=== PATIENT | male | born 1990 | race African-American/Black ===

== ENCOUNTER 2016-06-10 18:05 | Emergency (ER) | payer SELFPAY ==
[~2016-06-10] VITALS: Ht 182.9 cm; Wt 100.0 kg
[~2016-06-10 18:05] MED LIST: CYCL-36 PO; CYCL1PAK PO; IBUP800T23 PO; NORC10TA2 PO; PERC5TAB12 PO; WALKER STANDARD; Z.0.WALKERPLAT
[2016-06-10 18:27] VITALS: BP 145/81; PULSE 78; RESP 15; TEMP 97.9; O2SAT 98
--- NOTE | 2016-06-10 18:45 | PD ---
HPI . right hand pain and swelling Chief Complaint: Injury Time Seen by Provider: 18:43 Travel History International Travel<30 days: No Contact w/Intl Traveler<30days: No Traveled to known affect area: No History of Present Illness HPI 25-year-old male with a past medical history here with complaints of right hand pain and swelling. Patient slammed his hand in his car door by accident. He had an intense liang of pain and drove straight to the emergency department. Accident was only a few minutes ago) to arrival. He is complaining of right hand pain and swelling. He has difficulty moving the hand. He tells me that the extremity is somewhat numb. Examination he does have a significantly swollen right hand. There are swelling mainly over the third, fourth and fifth metacarpals. He has diminished package center supervisor strength. He has no other complaints. Pain is rated as 3/10 without and tingles into the forearm. PFSH Past Medical History Cancer: No Cardiovascular Problems: No Diminished Hearing: No Endocrine: No Genitourinary: No Immune Disorder: No Musculoskeletal: No Neurologic: No Psychiatric: No Reproductive: No Respiratory: No Immunizations Current: Yes Social History Alcohol Use: Yes Tobacco Use: Yes Substance Use: Yes (MARIJUANA) Allergies-Medications (Allergen,Severity, Reaction): Coded Allergies: No Known Allergies (Unverified , 09/10/15) Reported Meds & Prescriptions Reported Meds & Active Scripts Active Cyclobenzaprine HCl 10 Mg Tab 10 Mg PO Q8HR Walker Platform (Walkerplat) Device 1 Unit Walker Standard (Device) Device 1 Ea Percocet 5-325 mg (Oxycodone/Acetaminophen) 1 Tab 1 Tab PO Q6H PRN Ibuprofen 800 Mg Tab 800 Mg PO Q6 PRN Flexeril (Cyclobenzaprine HCl) 10 Mg Tab 10 Mg PO Q8 PRN Reported [place] 10-325 mg (Hydrocodone-Acetaminophen 10-325 mg) 1 Tab 1 Tab PO Q4H PRN Review of Systems General / Constitutional: No: Fever Eyes: No: Visual changes HENT: No: Headaches Cardiovascular: No: Chest Pain or Discomfort Respiratory: No: Shortness of Breath Gastrointestinal: No: Abdominal Pain Genitourinary: No: Dysuria Musculoskeletal: Positive: Pain (right hand pain) Skin: No Rash Neurologic: No: Weakness Psychiatric: No: Depression Endocrine: No: Polydipsia Hematologic/Lymphatic: No: Easy Bruising Physical Exam Narrative GENERAL: AAO x 3, no acute distress, Well-nourished, well-developed patient. SKIN: Warm and dry. No visible rashes or bruising. HEAD: Normocephalic and atraumatic. EYES: No scleral icterus. No injection or drainage. ENT: No nasal drainage noted. Mucous membranes pink. Airway patent. NECK: Supple, trachea midline. No JVD. CARDIOVASCULAR: Regular rate and rhythm without murmurs, gallops, or rubs. RESPIRATORY: Breath sounds equal bilaterally. No accessory muscle use. No rhonchi or rales. GASTROINTESTINAL: Abdomen soft, non-tender, nondistended. EXTREMITIES: No cyanosis. Right hand edema, tenderness, decreased package center supervisor strength. movement is decreased. BACK: Nontender without obvious deformity. No CVA tenderness. PSYCH: AAO x 3, normal affect. Data Data Last Documented VS Vital Signs Date Time Temp Pulse Resp B/P Pulse Ox O2 Delivery O2 Flow Rate FiO2 06/10/16 18:27 97.9 78 15 145/81 98 MDM Medical Decision Making Medical Screen Exam Complete: Yes Emergency Medical Condition: Yes Medical Record Reviewed: Yes Differential Diagnosis metacarpal fractures, metacarpal contusion, Narrative Course 25-year-old male with a past medical history here with complaints of right hand pain and swelling. Patient slammed his hand in his car door by accident. He had an intense liang of pain and drove straight to the emergency department. Accident was only a few minutes ago) to arrival. He is complaining of right hand pain and swelling. He has difficulty moving the hand. He tells me that the extremity is somewhat numb. Examination he does have a significantly swollen right hand. There are swelling mainly over the third, fourth and fifth metacarpals. He has diminished package center supervisor strength. He has no other complaints. Pain is rated as 3/10 without and tingles into the forearm. Patient seen and examined. He does have some significant swelling to the right hand. I believe this may be fractured. X-ray ordered. Patient will be transitioned over to the next provider. Disposition will be determined by that provider. Patient is currently comfortable and does not want any pain control meds. We have provided him with an ice pack to help reduce the swelling. Condition: Stable Karly Benedict Jun 10, 2016 18:45
--- NOTE | 2016-06-10 19:44 | PD ---
Physical Exam Date Seen by Provider: Jun 10, 2016 Time Seen by Provider: 19:43 Data Data Last Documented VS Vital Signs Date Time Temp Pulse Resp B/P Pulse Ox O2 Delivery O2 Flow Rate FiO2 06/10/16 18:27 97.9 78 15 145/81 98 Orders Hand, Complete ([id number]) (06/10/16 18:45) MDM Medical Record Reviewed: Yes Supervised Visit with TASNEEM: No Interpretation(s) Angulated displaced fifth metacarpal fracture Differential Diagnosis MDM: High Differential diagnoses: Fracture, sprain, strain, dislocation, contusion, neurovascular injury Narrative Course X-rays confirm a fracture of the fifth metacarpal. He is placed in a ulnar gutter splint. Lortab 5 a grams by mouth for pain ice pack applied. Mandatory follow-up ordered Diagnosis Primary Impression: Displaced fracture of neck of right fifth metacarpal bone Qualified Code: S62.336A - Closed displaced fracture of neck of fifth metacarpal bone of right hand, initial encounter Departure Forms: Tests/Procedures, Work Release Special Instructions: No work 2 days. Additional Instruction: Rest. Elevation. Keep clean and dry. Ice pack. 3 Advil every 6 hours. Lortab for severe pain. Follow-up with patient assistance. Med/Other Pt SpecificInfo: Prescription(s) given Scripts No Active Prescriptions or Reported Meds Disposition: 01 DISCHARGE HOME Condition: Stable Gaudencio Ann Jun 10, 2016 19:44
[2016-06-10] MEDS ORDERED: ACETAMINOPHEN/HYDROcodone 325 MG/5 MG TAB PO ONE (19:45)
[2016-06-10] MEDS ORDERED: HYDR-3533 PO (19:45)
--- NOTE | 2016-06-10 20:04 | RADRPT ---
EXAM DATE/TIME: 06/10/2016 19:33 [facility] COMPARISON: No previous studies available for comparison. INDICATIONS : Right hand pain. Patient got hand caught in a car door. Pain near the fifth metacarpal. MEDICAL HISTORY : None. SURGICAL HISTORY : None. ENCOUNTER: Initial ACUITY: 1 day PAIN SCORE: 10/10 LOCATION: Left hand. FINDINGS: There is an oblique and partially comminuted fracture of the distal metaphysis of the 5th metacarpal with ulnar angulation of the distal fracture fragment. The alignment of the fracture fragment and th e proximal phalanx is maintained. No radiopaque foreign body seen. CONCLUSION: Mildly comminuted boxer's fracture. Meet Person MD on June 10, 2016 at 20:02 Board Certified Radiologist. This report was verified electronically.
[2016-06-10 20:42] VITALS: BP 134/87
== END 2016-06-10 20:43 | disposition home or self-care (01) ==
LOC: NETRI 18:05
DX: S62.336A Displaced fracture of neck of fifth metacarpal bone, right hand, initial encounter for closed fracture (principal); Z72.0 Tobacco use; W23.1XXA Caught, crushed, jammed, or pinched between stationary objects, initial encounter
CPT/HCPCS: 29125; 73130

== ENCOUNTER 2016-06-17 06:11 | Day surgery (SDC) | payer SELFPAY ==
[~2016-06-17] VITALS: Ht 182.9 cm; Wt 95.0 kg
[~2016-06-17 06:11] MED LIST changes: -CYCL-36 PO; -CYCL1PAK PO; +HYDR-3533 PO; -IBUP800T23 PO; -NORC10TA2 PO; -PERC5TAB12 PO; -WALKER STANDARD; -Z.0.WALKERPLAT
[2016-06-17] MEDS ORDERED: LACTATED RINGER'S 1000 ML IV PRN (06:45)
[2016-06-17] MEDS ORDERED: ceFAZolin 2 GM PREMIX 50 ML IV SCH (06:45)
[2016-06-17] MEDS ORDERED: SODIUM CHLORID 0.9% 500 ML IV PRN (06:45)
[2016-06-17] MEDS ORDERED: METOPROLOL TARTRATE 25 MG TAB PO PRN (06:45)
[2016-06-17] MEDS ORDERED: CHLORHEXIDINE GLUCONATE 2 % 1 PACK (2 CLOTHS) TOPICAL PRN (06:45)
[2016-06-17] MEDS ORDERED: POVIDONE IODINE 5% (ANTISEPSIS KIT) 4 APPLICATIONS EACH NARE PRN (06:45)
[2016-06-17] MEDS ORDERED: INSULIN HUMAN REGULAR 1,000 UNITS/10 ML VIAL SQ PRN (06:45)
[2016-06-17] MEDS ORDERED: NO MEDS (06:56)
[2016-06-17 07:01] VITALS: BP 145/89; PULSE 48; RESP 16; O2SAT 95
[2016-06-17] MEDS ORDERED: BACITRACIN TOP OINT 15 GM TUBE ONE (07:12)
[2016-06-17] MEDS ORDERED: LIDOCAINE HCL 2% 50 ML VIAL ONE (07:12)
[2016-06-17] MEDS ORDERED: BUPIVACAINE HCL PF 0.5% 30 ML VIAL ONE (07:12)
[2016-06-17 07:20] VITALS: PULSE 44
[2016-06-17] MEDS ORDERED: ACETAMINOPHEN 1000 MG/100 ML VIAL IV ONE (07:26)
--- NOTE | 2016-06-17 08:36 | PD.OP ---
Operative Report Preoperative Diagnosis: (1) Displaced fracture of neck of right fifth metacarpal bone Postoperative Diagnosis: (1) Displaced fracture of neck of right fifth metacarpal bone Procedure: closed reduction right fifth metacarpal neck fracture Anesthesia: general Surgeon: Matt Workman Process Pumper(s): sandra Operation and Findings: angulated displaced fracture fifth metacarpal neck right hand Matt Workman MD Jun 17, 2016 08:36
[2016-06-17] MEDS ORDERED: fentaNYL CITRATE 250 MCG/5 ML AMP ONE (08:45)
[2016-06-17 09:30] VITALS: BP 123/78; PULSE 61; RESP 16; TEMP 97.9; O2SAT 96
[2016-06-17] MEDS ORDERED: KETOROLAC TROMETHAMINE 60 MG/2 ML (IM) VIAL IM ONE (12:00)
[2016-06-17] MEDS ORDERED: PROPOFOL 200 MG/20 ML AMP IV ONE (12:00)
[2016-06-17] MEDS ORDERED: ONDANSETRON HCL 4 MG/2 ML VIAL IV PUSH ONE (12:00)
--- NOTE | 2016-06-20 08:53 | MP ---
cc: GISSEL CRUZ MD DATE OF SURGERY 06/17/2016 PREOPERATIVE DIAGNOSIS Angulated displaced fifth metacarpal neck fracture right hand. POSTOPERATIVE DIAGNOSIS Angulated displaced fifth metacarpal neck fracture right hand. PROCEDURE Closed reduction fifth metacarpal neck fracture right hand SURGEON Dr. Cruz ANESTHESIA General ESTIMATED BLOOD LOSS No blood clots. TOURNIQUET TIME No tourniquet was used. SPLINTS Dorsal and volar splint was applied. CONDITION The patient was recovered and sent to the Recovery Room in stable condition. INDICATIONS The patient is a 25-year-old right-hand dominant male who presented with complaints of injury to the right hand at work five days ago who complained of pain over the right fifth metacarpal region. The patient also complained of inability to fully extend the little finger. On examination, he had tenderness over the fifth metacarpal neck region. X-ray showed a dorsal apex angulation with lateral displaced fifth metacarpal neck fracture. The patient had an extensor lag at the PIP joint. Because of the dorsal apex angulation, the patient was consented for closed/open reduction, internal fixation of the fifth metacarpal neck fracture. The patient was explained the risks and benefits of the procedure. PROCEDURE The patient was brought to the operating room. Under general anesthesia, the right upper extremity was thoroughly prepped and draped. Closed reduction was carried out with a Jahss maneuver flexing the MP joint and manipulating the fracture. Multiple C-arm views were obtained. The fracture was acceptably reduced including on the lateral view there was correction of the dorsal apex angulation. The finger was put through a range of motion. The fracture appeared stable. There was no evidence of rotational deformity on tenodesis of the finger. As the fracture was stable, a decision was made to proceed with just closed reduction and not pinning. 3 cc of local anesthesia was injected containing a mixture of 2% lidocaine, 5% Marcaine was injected across the fracture site. A dorsal and volar short-arm splint was applied keeping the MP joint in flexion, wrist in extension and PIP joint in extension. Good distal circulation at the end of the procedure. The patient will follow up in one weeks time for an x-ray through the splint and we will probably discontinued the splint in [id number] weeks time and put him in a removable hand-based ulnar gutter splint later. MD JANINE Snyder /8:40 AM 8:45 AM MTD
== END 2016-06-17 09:41 | disposition home or self-care (01) ==
LOC: HSDC 06:11
PROVIDERS: ATTEND Surgery Surgery of the Hand
DX: S62.336A Displaced fracture of neck of fifth metacarpal bone, right hand, initial encounter for closed fracture (principal); W23.1XXA Caught, crushed, jammed, or pinched between stationary objects, initial encounter; Y99.0 Civilian activity done for income or pay
CPT/HCPCS: 01820; 26605; 76000; J0131; J0690; J1885; J2405; J3010; J7120